=== PATIENT | female | born 1990 | race Caucasian/White ===

== ENCOUNTER 2016-04-11 09:42 | Emergency (ER) | payer MEDICAID ==
[2011-09-17 15:01] VITALS: BMI 30.5
[2016-04-11 10:47] LABS: APPEARANCE HAZY (CLEAR); BILIRUBIN NEGATIVE (NEGATIVE); COLOR YELLOW (YELLOW); GLUCOSE NEGATIVE (NEGATIVE); KETONE NEGATIVE (NEGATIVE); LEUKOCYTE ESTERASE 1+ (NEGATIVE); NITRITE NEGATIVE (NEGATIVE); PROTEIN NEGATIVE (NEGATIVE); SPECIFIC GRAVITY 1.015 (1.005-1.020); UROBILINOGEN NORMAL (NORMAL)
[2016-04-11 10:49] LABS: BACTERIA MODERATE /hpf (NONE SEEN); MUCUS <1+ /lpf (NONE SEEN); RED CELLS - URINE 0-5 /hpf (0-5)
== END 2016-04-11 12:22 | disposition home or self-care (01) ==
LOC: D.ER 09:42
PROVIDERS: Emergency Medicine
DX: N75.0 Cyst of Bartholin's gland (principal); N39.0 Urinary tract infection, site not specified

== ENCOUNTER 2016-04-14 08:48 | Emergency (ER) | payer MEDICAID ==
[2011-09-17 15:01] VITALS: BMI 30.5
== END 2016-04-14 09:10 | disposition home or self-care (01) ==
LOC: D.ER 08:48
DX: N75.0 Cyst of Bartholin's gland (principal); Z46.82 Encounter for fitting and adjustment of non-vascular catheter

== ENCOUNTER 2016-04-30 09:45 | Emergency (ER) | payer MEDICAID ==
[2011-09-17 15:01] VITALS: BMI 30.5
== END 2016-04-30 10:43 | disposition home or self-care (01) ==
LOC: D.ER 09:45
DX: H66.91 Otitis media, unspecified, right ear (principal); F17.200 Nicotine dependence, unspecified, uncomplicated

== ENCOUNTER 2016-11-07 18:28 | Emergency (ER) | payer MEDICAID ==
[2011-09-17 15:01] VITALS: BMI 30.5
== END 2016-11-07 20:44 | disposition left against medical advice (07) ==
LOC: D.ER 18:28
DX: N76.4 Abscess of vulva (principal)

== ENCOUNTER 2017-11-24 16:23 | Emergency (ER) | payer MEDICAID ==
[~2017-11-24] VITALS: Ht 170.2 cm; Wt 75.0 kg
[2017-11-24 16:31] VITALS: Ht 170.2 cm; Wt 75.0 kg
[2017-11-24 17:25] LABS: HCG URINE NEGATIVE (NEGATIVE)
[2017-11-24 17:40] LABS: APPEARANCE CLEAR (CLEAR); BILIRUBIN NEGATIVE (NEGATIVE); COLOR YELLOW (YELLOW); GLUCOSE NEGATIVE (NEGATIVE); KETONE NEGATIVE (NEGATIVE); NITRITE NEGATIVE (NEGATIVE); PROTEIN NEGATIVE (NEGATIVE); UROBILINOGEN NORMAL (NORMAL)
[2017-11-24 17:44] LABS: BACTERIA FEW /hpf (NONE SEEN); EPITHELIAL CELLS OCC /hpf (0-5); RED CELLS - URINE OCC /hpf (0-5); WHITE CELLS - URINE 0-5 /hpf (0-5)
[2017-11-24] MEDS ORDERED: MIRALAX527 GM PO (18:28)
[2017-11-24] MEDS ORDERED: MACROBID100 MG PO (18:28)
[2017-11-24 19:34] VITALS: BP 115/46
== END 2017-11-24 19:05 | disposition home or self-care (01) ==
LOC: D.ER 16:23
PROVIDERS: Emergency Medicine
DX: K59.00 Constipation, unspecified (principal); N39.0 Urinary tract infection, site not specified; R10.31 Right lower quadrant pain; F17.200 Nicotine dependence, unspecified, uncomplicated

== ENCOUNTER 2019-03-15 16:33 | Emergency (ER) | payer SELFPAY ==
[~2019-03-15] VITALS: Ht 170.2 cm; Wt 86.4 kg
[~2019-03-15 16:33] MED LIST: MACROBID100 MG PO; MIRALAX527 GM PO
[2019-03-15 16:47] VITALS: Ht 170.2 cm; Wt 86.4 kg
[2019-03-15 17:03] LABS: BASOPHILS 0.1 % (0-2); EOSINOPHILS 0 % (0-7); HEMATOCRIT 40.1 % (36.0-48.0); HEMOGLOBIN 13.9 g/dL (12-16); IMMATURE GRANULOCYTES 0.3 % (0-5); LYMPHOCYTES 13.8 % (15-50); MCH 31.5 pg (26.0-34.0); MCHC 34.7 g/dL (31.0-37.0); MCV 90.9 fL (80.0-100.0); MEAN PLATELET VOLUME 9.5 fL (7.4-10.4); MONOCYTES 6.4 % (2-11); NEUTROPHILS 79.4 % (40-80); RBC 4.41 10x6/uL (4.00-5.40); RDW 12.4 % (11.5-14.5); WBC 14.3 10x3/uL (4.8-10.8)
[2019-03-15 17:09] LABS: PLATELET COUNT 365 10x3/uL (130-400)
[2019-03-15 17:12] LABS: APPEARANCE CLEAR (CLEAR); COLOR YELLOW (YELLOW); NITRITE NEGATIVE (NEGATIVE); PROTEIN TRACE mg/dL (NEGATIVE); SPECIFIC GRAVITY 1.025 (1.005-1.020)
[2019-03-15 17:13] LABS: BILIRUBIN NEGATIVE (NEGATIVE); GLUCOSE NEGATIVE (NEGATIVE); KETONE MODERATE mg/dL (NEGATIVE); UROBILINOGEN NORMAL (NORMAL)
[2019-03-15 17:15] LABS: BACTERIA FEW /hpf (NEGATIVE); EPITHELIAL CELLS 0-5 /hpf (0-5); RED CELLS - URINE OCC /hpf (0-5); WHITE CELLS - URINE 0-5 /hpf (NEGATIVE)
[2019-03-15 17:25] LABS: CALC OSMOLALITY 279 mosm/kg (275-300); CALCIUM 10.3 mg/dL (8.5-10.1); CARBON DIOXIDE 25.5 mmol/L (21.0-32.0); CHLORIDE - SERUM 99 mmol/L (98-107); CREATININE - SERUM 1.2 mg/dL (0.6-1.3); GLUCOSE 113 mg/dL (74-106); SODIUM 140 mmol/L (136-145); UREA NITROGEN 13 mg/dL (7-18); eGFR NON AFRICAN AMERICAN 57 mL/min (90-120)
[2019-03-15 17:34] LABS: ALBUMIN 4.4 g/dL (3.4-5.0); ALKALINE PHOSPHATASE 95 U/L (46-116); ALT (SGPT) 37 U/L (10-68); AMYLASE - SERUM 52 U/L (25-115); BILIRUBIN - TOTAL 0.59 mg/dL (0.2-1.3); LIPASE 133 U/L (73-393); PROTEIN - SERUM 8.9 g/dL (6.4-8.2)
[2019-03-15 17:43] LABS: TROPONIN-I < 0.017 ng/mL (0.000-0.060)
[2019-03-15] MEDS ORDERED: FLAGYL500 MG PO (20:38)
[2019-03-15] MEDS ORDERED: PHENERGAN25 MG RC (20:38)
[2019-03-15] MEDS ORDERED: LEVOFLOXACIN500 MG PO (20:38)
[2019-03-15 21:21] VITALS: BP 116/49
== END 2019-03-15 21:22 | disposition home or self-care (01) ==
LOC: D.ER 16:33
PROVIDERS: Family Medicine
DX: K52.9 Noninfective gastroenteritis and colitis, unspecified (principal); R11.2 Nausea with vomiting, unspecified

== ENCOUNTER 2019-09-12 22:04 | Inpatient (IN) | payer OTHER ==
[~2019-09-12] VITALS: Ht 152.4 cm; Wt 71.2 kg
[~2019-09-12 22:04] MED LIST changes: +CIPRO500 MG PO; +FLAGYL500 MG PO; +LEVOFLOXACIN500 MG PO; +PHENERGAN25 MG RC
--- NOTE | 2019-09-12 22:20 | NUR ---
ATTEMPTED TO ASSIST PT WITH AMBULATION TO RESTROOM. GAIT APPEARS UNEVEN AND PT REPORTS "I AM DIZZY." THIS NURSE INSTRUCTS PT TO SIT DOWN ON BED, HOWEVER PT ATTEMPTS TO STILL MOVE FORWARD IN ROOM. THIS NURSE REPEATED COMMAND, AND ASSISTED PT TO SIT IN BED. PT MAKING SPASTIC MOVEMENTS WITH EXTREMETIES C/O CRAMPING IN LEGS. PT THRASHING BODY ABOUT IN BED.
[2019-09-12 22:38] LABS: BASOPHILS 0.4 % (0-2); EOSINOPHILS 0.1 % (0-7); HEMATOCRIT 43.1 % (36.0-48.0); HEMOGLOBIN 15.5 g/dL (12-16); IMMATURE GRANULOCYTES 0.4 % (0-5); LYMPHOCYTES 12.2 % (15-50); MCH 31.9 pg (26.0-34.0); MCV 88.7 fL (80.0-100.0); MEAN PLATELET VOLUME 10.2 fL (7.4-10.4); NEUTROPHILS 80.9 % (40-80); RBC 4.86 10x6/uL (4.00-5.40); RDW 11.9 % (11.5-14.5); WBC 14.3 10x3/uL (4.8-10.8)
[2019-09-12 22:42] LABS: PLATELET COUNT 364 10x3/uL (130-400)
[2019-09-12 23:27] LABS: ALBUMIN 4.7 g/dL (3.4-5.0); ALKALINE PHOSPHATASE 110 U/L (30-120); ALT (SGPT) 77 U/L (10-68); CALC OSMOLALITY 277 mosm/kg (275-300); CALCIUM 10.1 mg/dL (8.5-10.1); CARBON DIOXIDE 21.2 mmol/L (21.0-32.0); CHLORIDE - SERUM 95 mmol/L (98-107); CREATINE KINASE 634 UL (21-215); CREATININE - SERUM 1.5 mg/dL (0.6-1.3); GLUCOSE 151 mg/dL (74-106); LIPASE 61 U/L (73-393); MAGNESIUM - SERUM 2.2 mg/dL (1.8-2.4); PROTEIN - SERUM 8.9 g/dL (6.4-8.2); SODIUM 135 mmol/L (136-145); UREA NITROGEN 27 mg/dL (7-18); eGFR NON AFRICAN AMERICAN 43 mL/min (90-120)
[2019-09-12 23:47] LABS: POTASSIUM - SERUM 2.5 mmol/L (3.5-5.1)
[2019-09-12 23:48] LABS: CKMB 10.2 U/L (0.0-3.6)
[2019-09-13 00:32] LABS: HCG URINE NEGATIVE (NEGATIVE)
[2019-09-13 00:35] LABS: BILIRUBIN NEGATIVE (NEGATIVE); GLUCOSE NEGATIVE (NEGATIVE); KETONE LARGE mg/dL (NEGATIVE); NITRITE NEGATIVE (NEGATIVE); UROBILINOGEN NORMAL (NORMAL)
--- NOTE | 2019-09-13 00:35 | NUR ---
OBSERVED PT FORCING FINGERS DOWN THROAT TO ELICIT GAG REFLEX. THIS NURSE STOPPED PT, AND PT EDUCATION INITIATED. PT STATES "WELL, IT MAKES ME FEEL BETTER." EDP NOTIFIED OF PT ACTIVITY.
[2019-09-13 00:37] LABS: BACTERIA MODERATE /hpf (NEGATIVE); EPITHELIAL CELLS 0-5 /hpf (0-5); HYALINE CAST 0-5 /lpf (NONE SEEN)
[2019-09-13 00:38] LABS: UDS - AMPHET POSITIVE QUAL (NEGATIVE); UDS - BARB NEGATIVE QUAL (NEGATIVE); UDS - BENZO POSITIVE QUAL (NEGATIVE); UDS - COCAINE POSITIVE QUAL (NEGATIVE); UDS - OPIATE NEGATIVE QUAL (NEGATIVE); UDS - PCP NEGATIVE QUAL (NEGATIVE); UDS - THC POSITIVE QUAL (NEGATIVE)
[2019-09-13 04:23] VITALS: BP 130/88
[2019-09-13 04:30] VITALS: BP 127/63
--- NOTE | 2019-09-13 07:52 | NUR ---
PT RECEIVED SLEEPING AND RESTLESS. ZOFRAN GIVEN FOR NAUSEA. ICE CHIPS GIVEN.
[2019-09-13 08:12] LABS: BASOPHILS 0.2 % (0-2); EOSINOPHILS 0 % (0-7); HEMATOCRIT 38.7 % (36.0-48.0); HEMOGLOBIN 13.7 g/dL (12-16); IMMATURE GRANULOCYTES 0.2 % (0-5); LYMPHOCYTES 4.5 % (15-50); MCH 31.9 pg (26.0-34.0); MCHC 35.4 g/dL (31.0-37.0); MCV 90.2 fL (80.0-100.0); MEAN PLATELET VOLUME 10.7 fL (7.4-10.4); MONOCYTES 4.2 % (2-11); NEUTROPHILS 90.9 % (40-80); PLATELET COUNT 302 10x3/uL (130-400); RBC 4.29 10x6/uL (4.00-5.40); RDW 11.9 % (11.5-14.5); WBC 16.4 10x3/uL (4.8-10.8)
[2019-09-13 09:04] VITALS: BP 142/81
--- NOTE | 2019-09-13 12:04 | NUR ---
PT STILL SLEEPING ALOT. AWAKES TO VOICE. STATES SHE IS DISORIENTED WHEN WENT TO BATHROOM DUE TO DIZZINESS. NAUSEA MEDS GIVEN. SHE DID EAT SOME JELLO.
[2019-09-13 12:32] LABS: CKMB 42.1 U/L (0.0-3.6); CREATINE KINASE 1692 UL (21-215); TROPONIN-I < 0.017 ng/mL (0.000-0.060)
[2019-09-13 13:19] VITALS: BP 140/85
[2019-09-13 14:25] VITALS: Ht 152.4 cm; Wt 71.2 kg
--- NOTE | 2019-09-13 16:05 | NUR ---
PT SLEEPING, WILL AROUSE TO VOICE OR TOUCH. HAS VOIDED TODAY BUT PRIOR TO NEEDING SAMPLE. CUP IN BATHROOM FOR SAMPLE.
[2019-09-13 16:47] LABS: CALCIUM 8.6 mg/dL (8.5-10.1); CARBON DIOXIDE 23.2 mmol/L (21.0-32.0); CHLORIDE - SERUM 102 mmol/L (98-107); SODIUM 136 mmol/L (136-145)
[2019-09-13 16:51] LABS: CALC OSMOLALITY 271 mosm/kg (275-300); CREATININE - SERUM 0.9 mg/dL (0.6-1.3); GLUCOSE 88 mg/dL (74-106); POTASSIUM - SERUM 3.8 mmol/L (3.5-5.1); UREA NITROGEN 16 mg/dL (7-18); eGFR NON AFRICAN AMERICAN 78 mL/min (90-120)
[2019-09-13 16:52] LABS: ALBUMIN 3.6 g/dL (3.4-5.0); ALKALINE PHOSPHATASE 78 U/L (30-120); ALT (SGPT) 64 U/L (10-68); BILIRUBIN - TOTAL 0.77 mg/dL (0.2-1.3); PROTEIN - SERUM 6.6 g/dL (6.4-8.2)
[2019-09-13 16:56] VITALS: BP 142/75
[2019-09-13 20:17] VITALS: BP 119/68
--- NOTE | 2019-09-13 20:38 | NUR ---
REPORT RECEIVED AND ROUNDING COMPLETE. PATIENT LAYING IN BED EYES CLOSED BRETHING SHALLOW AND EVEN, NO DISTRESS NOTED. FLUIDS RUNNING AT THIS TIME. CALL LIGHT WITHIN REACH AND BED IN LOWEST LOCKED POSITION.
--- NOTE | 2019-09-13 21:59 | NUR ---
PATIENT GAVE PERMISSION AND PASSCODE TO/AND FOR ITZEL GODINEZ FATHER OF CHILDREN AND SPOUSE TO USE FOR MEDICAL INFORMATION. SHE ALSO GAVE MR. GODINEZ PERMISSION TO TAKE HER PURSE AND BELONGINGS WITH HIM WITNESSED BY [employer] COOL LPN. ALSO CALLED AND NOTIFIED JACQUELINE [employer] PROGRAM MANAGER.
[2019-09-14 00:24] VITALS: BP 135/78
[2019-09-14 05:10] LABS: BASOPHILS 0.2 % (0-2); EOSINOPHILS 0.5 % (0-7); HEMATOCRIT 32.7 % (36.0-48.0); HEMOGLOBIN 11.1 g/dL (12-16); IMMATURE GRANULOCYTES 0.1 % (0-5); LYMPHOCYTES 22.1 % (15-50); MCH 31.1 pg (26.0-34.0); MCHC 33.9 g/dL (31.0-37.0); MCV 91.6 fL (80.0-100.0); MEAN PLATELET VOLUME 10.2 fL (7.4-10.4); MONOCYTES 10.6 % (2-11); NEUTROPHILS 66.5 % (40-80); PLATELET COUNT 243 10x3/uL (130-400); RBC 3.57 10x6/uL (4.00-5.40); RDW 12.2 % (11.5-14.5)
[2019-09-14 05:11] VITALS: BP 161/93
[2019-09-14 05:21] LABS: WBC 8.5 10x3/uL (4.8-10.8)
[2019-09-14 05:56] LABS: ALBUMIN 3.2 g/dL (3.4-5.0); ALKALINE PHOSPHATASE 68 U/L (30-120); ALT (SGPT) 57 U/L (10-68); CALC OSMOLALITY 271 mosm/kg (275-300); CALCIUM 8.1 mg/dL (8.5-10.1); CARBON DIOXIDE 24.9 mmol/L (21.0-32.0); CHLORIDE - SERUM 106 mmol/L (98-107); CKMB 18.9 U/L (0.0-3.6); CREATINE KINASE 1338 UL (21-215); CREATININE - SERUM 0.8 mg/dL (0.6-1.3); GLUCOSE 104 mg/dL (74-106); POTASSIUM - SERUM 3.6 mmol/L (3.5-5.1); PROTEIN - SERUM 6.1 g/dL (6.4-8.2); SODIUM 137 mmol/L (136-145); UREA NITROGEN 8 mg/dL (7-18); eGFR NON AFRICAN AMERICAN 90 mL/min (90-120)
[2019-09-14 08:25] VITALS: BP 149/78
--- NOTE | 2019-09-14 11:21 | NUR ---
PT LEAVING AMA DUE TO PERSONAL SITUATION AT HOME. RICKIE MONTANA NOTIFIED, HAD ALREADY TALKED TO HER THIS MORNING. IV REMOVED AND TELEMETRY DC'D.
== END 2019-09-14 11:23 | disposition left against medical advice (07) | DRG 872 ==
LOC: D.ER 22:04 → D.M2 23:59 → OBSVTIME 23:59 → D.M2 23:59
PROVIDERS: Family Medicine; ADMIT Family Medicine; ATTEND Family Medicine
DX: A41.9 Sepsis, unspecified organism (principal); N39.0 Urinary tract infection, site not specified; N17.9 Acute kidney failure, unspecified; M62.82 Rhabdomyolysis; E87.1 Hypo-osmolality and hyponatremia; F17.203 Nicotine dependence unspecified, with withdrawal; E87.6 Hypokalemia; F14.90 Cocaine use, unspecified, uncomplicated; F15.90 Other stimulant use, unspecified, uncomplicated; F12.90 Cannabis use, unspecified, uncomplicated; F41.8 Other specified anxiety disorders; R40.2253 Coma scale, best verbal response, oriented, at hospital admission; R40.2353 Coma scale, best motor response, localizes pain, at hospital admission; R40.2133 Coma scale, eyes open, to sound, at hospital admission

== ENCOUNTER 2019-10-07 11:33 | Emergency (ER) | payer OTHER ==
[~2019-10-07] VITALS: Ht 170.2 cm; Wt 75.0 kg
[2019-10-07 12:25] VITALS: Ht 170.2 cm; Wt 75.0 kg
[2019-10-07 12:52] LABS: CALC OSMOLALITY 269 mosm/kg (275-300); CARBON DIOXIDE 31.2 mmol/L (21.0-32.0); CHLORIDE - SERUM 96 mmol/L (98-107); CREATININE - SERUM 1.1 mg/dL (0.6-1.3); GLUCOSE 123 mg/dL (74-106); POTASSIUM - SERUM 3.2 mmol/L (3.5-5.1); SODIUM 134 mmol/L (136-145); UREA NITROGEN 16 mg/dL (7-18); eGFR NON AFRICAN AMERICAN 62 mL/min (90-120)
[2019-10-07 13:01] LABS: ALBUMIN 4.4 g/dL (3.4-5.0); ALKALINE PHOSPHATASE 94 U/L (30-120); ALT (SGPT) 59 U/L (10-68); AMYLASE - SERUM 94 U/L (25-115); LIPASE 138 U/L (73-393); PROTEIN - SERUM 8.6 g/dL (6.4-8.2)
[2019-10-07 13:02] LABS: TROPONIN-I < 0.017 ng/mL (0.000-0.060)
[2019-10-07 13:06] LABS: BASOPHILS 0.6 % (0-2); EOSINOPHILS 0.2 % (0-7); HEMATOCRIT 44.7 % (36.0-48.0); HEMOGLOBIN 15.4 g/dL (12-16); IMMATURE GRANULOCYTES 0.5 % (0-5); LYMPHOCYTES 8.9 % (15-50); MCH 32.4 pg (26.0-34.0); MCHC 34.5 g/dL (31.0-37.0); MCV 93.9 fL (80.0-100.0); MEAN PLATELET VOLUME 9.8 fL (7.4-10.4); NEUTROPHILS 83.8 % (40-80); PLATELET COUNT 388 10x3/uL (130-400); RBC 4.76 10x6/uL (4.00-5.40); RDW 12.1 % (11.5-14.5); WBC 14.4 10x3/uL (4.8-10.8)
[2019-10-07 13:57] LABS: HCG SERUM NEGATIVE (NEGATIVE)
[2019-10-07 15:07] LABS: BILIRUBIN NEGATIVE (NEGATIVE); GLUCOSE NEGATIVE (NEGATIVE); KETONE NEGATIVE (NEGATIVE); NITRITE NEGATIVE (NEGATIVE); SPECIFIC GRAVITY 1.015 (1.005-1.020); UROBILINOGEN NORMAL (NORMAL)
[2019-10-07 15:08] LABS: BACTERIA FEW /hpf (NEGATIVE); EPITHELIAL CELLS 0-5 /hpf (0-5); RED CELLS - URINE 0-5 /hpf (0-5)
[2019-10-07] MEDS ORDERED: KEFLEX500 MG PO (15:22)
[2019-10-07] MEDS ORDERED: ZOFRAN ODT4 MG/UDTAB PO (15:22)
[2019-10-07] MEDS ORDERED: DICLOFENAC SODI50 MG PO (15:22)
[2019-10-07 16:13] VITALS: BP 126/69
== END 2019-10-07 16:11 | disposition home or self-care (01) ==
LOC: D.ER 11:33
PROVIDERS: Family Medicine
DX: N39.0 Urinary tract infection, site not specified (principal); R10.9 Unspecified abdominal pain; D72.828 Other elevated white blood cell count; R11.2 Nausea with vomiting, unspecified

== ENCOUNTER 2020-08-02 16:21 | Emergency (ER) | payer OTHER ==
[~2020-08-02] VITALS: Ht 170.2 cm; Wt 70.8 kg
[~2020-08-02 16:21] MED LIST changes: +DICLOFENAC SODI50 MG PO; +KEFLEX500 MG PO; +ZOFRAN ODT4 MG/UDTAB PO
[2020-08-02 16:31] VITALS: Ht 170.2 cm; Wt 70.8 kg
[2020-08-02 18:31] LABS: BASOPHILS 0.2 % (0-2); EOSINOPHILS 0 % (0-7); HEMATOCRIT 40.1 % (36.0-48.0); HEMOGLOBIN 13.7 g/dL (12-16); IMMATURE GRANULOCYTES 0.3 % (0-5); LYMPHOCYTE ABS# 1.02 10x3/uL (1.18-3.74); LYMPHOCYTES 6.7 % (15-50); MCH 31.4 pg (26.0-34.0); MCHC 34.2 g/dL (31.0-37.0); MCV 91.8 fL (80.0-100.0); MEAN PLATELET VOLUME 10.2 fL (7.4-10.4); MONOCYTES 2.2 % (2-11); NEUTROPHIL ABS# 13.72 10x3/uL (1.56-6.13); NEUTROPHILS 90.6 % (40-80); PLATELET COUNT 384 10x3/uL (130-400); RBC 4.37 10x6/uL (4.00-5.40); RDW 12.8 % (11.5-14.5); WBC 15.2 10x3/uL (4.8-10.8)
[2020-08-02 18:54] LABS: CALC OSMOLALITY 284 mosm/kg (275-300); CALCIUM 9.8 mg/dL (8.5-10.1); CARBON DIOXIDE 25.5 mmol/L (21.0-32.0); CHLORIDE - SERUM 104 mmol/L (98-107); CREATININE - SERUM 1.2 mg/dL (0.6-1.3); GLUCOSE 154 mg/dL (74-106); POTASSIUM - SERUM 3.8 mmol/L (3.5-5.1); SODIUM 141 mmol/L (136-145); UREA NITROGEN 16 mg/dL (7-18); eGFR NON AFRICAN AMERICAN 56 mL/min (90-120)
[2020-08-02 19:05] LABS: ALBUMIN 4.3 g/dL (3.4-5.0); ALKALINE PHOSPHATASE 76 U/L (30-120); ALT (SGPT) 23 U/L (10-68); AMYLASE - SERUM 52 U/L (25-115); BILIRUBIN - TOTAL 0.49 mg/dL (0.2-1.3)
[2020-08-02 19:07] LABS: LIPASE 39 U/L (73-393); TROPONIN-I < 0.017 ng/mL (0.000-0.060)
[2020-08-02] MEDS ORDERED: ZOFRAN ODT4 MG/UDTAB PO (22:31)
[2020-08-03 00:34] VITALS: BP 145/72
== END 2020-08-03 00:34 | disposition home or self-care (01) ==
LOC: D.ER 16:21
PROVIDERS: Student in an Organized Health Care Education/Training Program
DX: R11.2 Nausea with vomiting, unspecified (principal); R10.13 Epigastric pain